=== PATIENT | female | born 1975 | race Caucasian/White ===

== ENCOUNTER → 2019-07-01 14:56 | Outpatient (BNVA) | payer MEDICARE, SELFPAY | PROVIDERS: Family Provider Family Medicine; PCP Family Medicine; Visit Provider Psychiatry & Neurology Psychiatry | DX: F41.1 Generalized anxiety disorder (principal); F10.21 Alcohol dependence, in remission; F43.9 Reaction to severe stress, unspecified | CPT/HCPCS: 99204 ==

== ENCOUNTER → 2019-08-20 08:40 | Outpatient (BNVA) | payer MEDICARE, SELFPAY | PROVIDERS: Family Provider Family Medicine; PCP Family Medicine; Visit Provider Psychiatry & Neurology Psychiatry | DX: F41.1 Generalized anxiety disorder (principal); F43.9 Reaction to severe stress, unspecified; F10.21 Alcohol dependence, in remission; F32.9 Major depressive disorder, single episode, unspecified | CPT/HCPCS: 99213 ==

== ENCOUNTER → 2019-11-12 07:53 | Outpatient (BNVA) | payer MEDICARE, SELFPAY | PROVIDERS: Family Provider Family Medicine; PCP Family Medicine; Visit Provider Psychiatry & Neurology Psychiatry | DX: F43.9 Reaction to severe stress, unspecified (principal); F10.21 Alcohol dependence, in remission; F41.1 Generalized anxiety disorder | CPT/HCPCS: 99213 ==

== ENCOUNTER → 2020-03-04 07:37 | Outpatient (BNVA) | payer MEDICARE, SELFPAY | PROVIDERS: Family Provider Family Medicine; PCP Family Medicine Adult Medicine; Visit Provider Psychiatry & Neurology Psychiatry | DX: F41.1 Generalized anxiety disorder (principal); F43.9 Reaction to severe stress, unspecified; F10.21 Alcohol dependence, in remission; F32.9 Major depressive disorder, single episode, unspecified; F33.2 Major depressive disorder, recurrent severe without psychotic features | CPT/HCPCS: 99214 ==

== ENCOUNTER 2020-04-02 10:33 | Emergency (ER) | payer MEDICARE, SELFPAY ==
[2020-04-02 10:35] VITALS: BP 156/101; PULSE 138; RESP 18; TEMP 36.7; O2SAT 100; BMI 25.8
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
[2020-04-02 11:13] VITALS: BP 166/95; PULSE 82; RESP 18; O2SAT 98
[2020-04-02] MEDS: tetanus-dipt-pertussis 0.5 mL SDV IM (11:20)
== END 2020-04-02 11:18 | disposition home or self-care (01) ==
PROVIDERS: Emergency Provider Nurse Practitioner Family; PCP Family Medicine Adult Medicine
DX: S61.411A Laceration without foreign body of right hand, initial encounter (principal); I10 Essential (primary) hypertension; F17.210 Nicotine dependence, cigarettes, uncomplicated; W25.XXXA Contact with sharp glass, initial encounter; Z23 Encounter for immunization
CPT/HCPCS: 12002; 12345; 90471; 90715; 99281; 99282

== ENCOUNTER → 2020-05-18 08:22 | Outpatient (BNVA) | payer MEDICARE, SELFPAY | PROVIDERS: PCP Family Medicine Adult Medicine; Visit Provider Psychiatry & Neurology Psychiatry | DX: F32.9 Major depressive disorder, single episode, unspecified (principal); F41.1 Generalized anxiety disorder; M54.9 Dorsalgia, unspecified; G89.29 Other chronic pain; F43.9 Reaction to severe stress, unspecified; F10.21 Alcohol dependence, in remission | CPT/HCPCS: 99213 ==

== ENCOUNTER → 2020-08-10 09:06 | Outpatient (BNVA) | payer MEDICARE, SELFPAY | PROVIDERS: PCP Family Medicine Adult Medicine; Visit Provider Psychiatry & Neurology Psychiatry | DX: F32.9 Major depressive disorder, single episode, unspecified (principal); F41.1 Generalized anxiety disorder; M54.9 Dorsalgia, unspecified; G89.29 Other chronic pain; F43.9 Reaction to severe stress, unspecified; F10.21 Alcohol dependence, in remission | CPT/HCPCS: 99213 ==

== ENCOUNTER → 2020-11-02 13:13 | Outpatient (BNVA) | payer MEDICARE, SELFPAY | PROVIDERS: PCP Family Medicine Adult Medicine; Visit Provider Psychiatry & Neurology Psychiatry | DX: F32.9 Major depressive disorder, single episode, unspecified (principal); F41.1 Generalized anxiety disorder; F17.200 Nicotine dependence, unspecified, uncomplicated; M54.9 Dorsalgia, unspecified; G89.29 Other chronic pain; F43.9 Reaction to severe stress, unspecified; F10.21 Alcohol dependence, in remission | CPT/HCPCS: 99214 ==

== ENCOUNTER → 2020-12-28 09:27 | Outpatient (BNVA) | payer MEDICARE, SELFPAY | PROVIDERS: PCP Family Medicine; Referring Provider Family Medicine; Visit Provider Anesthesiology | DX: G89.29 Other chronic pain (principal); M54.5 Low back pain; F17.210 Nicotine dependence, cigarettes, uncomplicated; Z76.89 Persons encountering health services in other specified circumstances; Z79.891 Long term (current) use of opiate analgesic | CPT/HCPCS: 99204 ==

== ENCOUNTER 2021-01-10 13:46 | Outpatient (CLI) | payer MEDICARE, SELFPAY ==
--- NOTE | 2021-01-10 13:45 | MR_ITS ---
WS: [id number] MRI LUMBAR SPINE NONCONTRAST TECHNIQUE: Sagittal T1, T2 and STIR imaging. Axial T1 and T2 imaging. CLINICAL INFORMATION: M54.9 - Dorsalgia, unspecified COMPARISON: None. FINDINGS: Mild lumbar curve. No acute compression. No high-grade central canal stenosis. L1-L2: Normal. L2-L3: Normal. L3-L4: Slight annular bulging with slight effacement of ventral thecal sac. Spinal canal and foramen are patent. Mild facet arthropathy. L4-L5: Mild annular bulging with slight effacement of the ventral thecal sac. Narrowing of the left s ubarticular recess. Mild right foraminal narrowing. Mild facet arthropathy. L5-S1: No significant disc bulging. Spinal canal and foramen are patent. Small nondisplaced fracture involving the distal S4 segment at the edge of the [id number] with a s mall amount of edema. MR/MR lumbar spine wo con* [id number] IMPRESSION: 1. Small nondisplaced fracture involving the distal S4 segment at the edge of the [id number]-[id number] with a small amount of edema. Recommend correlation for sacro coccygeal pain and recent trauma. This has an acute to subacute appearance. 2. Mild lumbar curve. No acute compression. No high-grade central canal stenos is. 3. Mild annular bulging L4-5 with slight narrowing of the subarticular recess left greater than right. 4. Mild facet arthropathy L3-L4 and L4-L5. 5. Mild right L4-5 foraminal narrowing.
== END 2021-01-10 13:47 | disposition home or self-care (01) ==
LOC: RADSHAW 13:50
PROVIDERS: PCP Family Medicine; Visit Provider Anesthesiology
DX: M47.816 Spondylosis without myelopathy or radiculopathy, lumbar region (principal); M51.26 Other intervertebral disc displacement, lumbar region; S32.10XA Unspecified fracture of sacrum, initial encounter for closed fracture; X58.XXXA Exposure to other specified factors, initial encounter
CPT/HCPCS: 72148

== ENCOUNTER → 2021-01-25 09:43 | Outpatient (BNVA) | payer MEDICARE, SELFPAY | PROVIDERS: PCP Family Medicine; Visit Provider Anesthesiology | DX: F32.9 Major depressive disorder, single episode, unspecified (principal); F41.1 Generalized anxiety disorder; F17.210 Nicotine dependence, cigarettes, uncomplicated; M54.9 Dorsalgia, unspecified; G89.29 Other chronic pain; F43.9 Reaction to severe stress, unspecified; F10.21 Alcohol dependence, in remission; M54.5 Low back pain; M54.2 Cervicalgia; Z79.891 Long term (current) use of opiate analgesic | CPT/HCPCS: 99213; 99214 ==

== ENCOUNTER → 2021-04-19 12:25 | Outpatient (BNVA) | payer MEDICARE, SELFPAY | PROVIDERS: PCP Family Medicine; Visit Provider Psychiatry & Neurology Psychiatry | DX: F32.9 Major depressive disorder, single episode, unspecified (principal); F41.1 Generalized anxiety disorder; M54.9 Dorsalgia, unspecified; G89.29 Other chronic pain | CPT/HCPCS: 99213 ==

== ENCOUNTER 2021-09-05 15:33 | Emergency (ER) | payer MEDICARE, SELFPAY ==
[2021-09-05 16:42] VITALS: BP 134/76; PULSE 85; RESP 14; TEMP 36.9; O2SAT 98; BMI 21.7
[2021-09-05 19:20] VITALS: BP 134/70; RESP 18; O2SAT 92
--- NOTE | 2021-09-05 19:25 | CTR_ITS ---
PROCEDURE INFORMATION: Exam: CT Head Without Contrast Exam date and time: 09/05/2021 8:19 PM Age: 46 years old Clinical indication: Condition or disease; Patient HX: HX of seizures. 4 seizures in last three days two today; Additional info: Seizure TECHNIQUE: Imaging protocol: Computed tomography of the head without contrast. Radiation optimization: All CT scans at this facility use at least one of these dose optimization techniques: automated exposure control; mA and/or kV adjustment per patient size (includes targeted exams where dose is matched to clinical indication); or iterative reconstruction. COMPARISON: CT head wo con* [id number] 01/17/2019 11:49 PM RADIATION DOSE METRICS: Total DLP (mGy-cm): 837.14 FINDINGS: Brain: Small bilateral cerebral convexity chronic subdural fluid collections are noted measuring up to 7 mm on the left and 9 mm on the right Mild atrophy and mild to moderate white matter chronic microvascular changes are noted. No evidence of acute infarction. Trace subarachnoid hemorrhage is present in the lateral right frontal lobe (image 29 sagittal series for reference). No midline shift. Cerebral ventricles: No ventriculomegaly. Paranasal sinuses: Visualized sinuses are unremarkable. No fluid levels. Mastoid air cells: Visualized mastoid air cells are well aerated. Bones/joints: Unremarkable. No acute fracture. Soft tissues: Unremarkable. CT/CT head wo con* [id number] IMPRESSION: 1. Trace right frontal lobe subarachnoid hemorrhage is noted. 2. Small bilateral cerebral convexity chronic subdural fluid collections are also appreciated. No midline shift.
[2021-09-05 19:43] LABS: Basophils % 0.3 %; Eosinophils # 0.3 10^3/uL (0.0-0.8); Eosinophils % 2.5 %; Hematocrit 28.6 % (37.0-47.0); Hemoglobin 9.5 g/dL (11.5-15.3); Lymphocytes # 4.6 10^3/uL (0.8-4.8); Lymphocytes % 39.6 %; Mean Corpuscular HGB Conc 33.2 g/dL (30.0-36.0); Mean Corpuscular Hemoglobin 32.1 pg (28.0-34.0); Mean Corpuscular Volume 96.6 fl (81-99); Mean Platelet Volume 10.5 fL (7.4-10.4); Monocytes # 0.7 10^3/uL (0.2-0.9); Monocytes % 6.2 %; Neutrophils # 5.91 10^3/uL (1.8-7.7); Neutrophils % 50.8 %; Nucleated Red Blood Cells % 0.2 %; Platelet Count 321 10^3/cmm (130-400); Red Blood Count 2.96 10^6/uL (4.1-5.3); Red Cell Distribution Width 16.7 % (12.1-15.1); White Blood Count 11.6 10^3/uL (4.0-10.0)
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
[2021-09-05] MEDS: levETIRAcetam 750 MG in sodium chloride 0.9% (100 ml) 100 ML 430 MG IV (19:53)
[2021-09-05] MEDS: LORazepam 2 mg/mL INJ 1 mL 1 MG IVP (19:53)
[2021-09-05 20:00] VITALS: BP 138/70; PULSE 89; RESP 18; O2SAT 98
[2021-09-05 20:06] LABS: Alanine Aminotransferase 8 U/L (0-33); Albumin Level 3.6 g/dL (3.5-5.2); Alkaline Phosphatase 164 IU/L (35-105); Blood Urea Nitrogen 13 mg/dL (6-20); Calcium 8.8 mg/dL (8.5-10.5); Carbon Dioxide 26 mmol/L (22-29); Chloride 87 mmol/L (98-107); Glomerular Filtration Rate 76.6 mL/min (90-130); Glucose 405 mg/dL (65-115); Osmolality Calculated 287 mOsm/kg (285-295); Sodium 130 mmol/L (136-145); Total Bilirubin 0.2 mg/dL (0.15-1.2); Total Protein 6.6 g/dL (6.6-8.7)
[2021-09-05 20:15] LABS: Anion Gap 19.7 (5-19); Aspartate Amino Transferase 18 U/L (0-32)
[2021-09-05 20:16] LABS: Potassium 2.7 mmol/L (3.5-5.1)
[2021-09-05 20:55] LABS: Magnesium 1.4 mg/dL (1.7-2.3)
[2021-09-05] MEDS: potassium chloride ER 20 mEq Tablet 60 MEQ PO (20:56)
[2021-09-05 21:36] VITALS: BP 138/70; PULSE 89; RESP 18; O2SAT 98
== END 2021-09-05 21:37 | disposition short-term general hospital (02) ==
PROVIDERS: Emergency Provider Emergency Medicine; PCP Family Medicine
DX: S06.6X9A Traumatic subarachnoid hemorrhage with loss of consciousness of unspecified duration, initial encounter (principal); Y09 Assault by unspecified means; R56.9 Unspecified convulsions; I10 Essential (primary) hypertension; F17.210 Nicotine dependence, cigarettes, uncomplicated
CPT/HCPCS: 70450; 80053; 83735; 85025; 96365; 96367; 96375; 99285; J1953; J2060; J3475

== ENCOUNTER 2021-09-20 23:07 | Emergency (ER) | payer MEDICARE, SELFPAY ==
[2021-09-20 23:12] VITALS: BP 146/92; PULSE 92; RESP 16; TEMP 36.6; O2SAT 97; BMI 22.8
--- NOTE | 2021-09-20 23:16 | CTR_ITS ---
PROCEDURE INFORMATION: Exam: CT Head Without Contrast Exam date and time: 09/20/2021 11:30 PM Age: 46 years old Clinical indication: Pain; Headache; Aura effect not specified; Patient HX: C/O severe migraine. Patient had CT head that showed frontal subarachnoid bleed on 09/05/2021. ; Additional info: Headache, HX sah TECHNIQUE: Imaging protocol: Computed tomography of the head without contrast. Radiation optimization: All CT scans at this facility use at least one of these dose optimization techniques: automated exposure control; mA and/or kV adjustment per patient size (includes targeted exams where dose is matched to clinical indication); or iterative reconstruction. Other technique: STROKE PROTOCOL was implemented. COMPARISON: CT head wo con* [id number] 09/05/2021 8:19 PM RADIATION DOSE METRICS: Total DLP (mGy-cm): 838.83 FINDINGS: Brain: An acute hemorrhagic component has developed in the previously seen bilateral cerebral convexity subdural hematomas. The right cerebral convexity subdural hematoma measures up to 2.4 cm and the left cerebral convexity subdural hematoma measures up to 17 mm. Leftward midline shift of approximately 8 mm has developed. The previously seen right frontal subarachnoid hemorrhage has resolved. No. CT evidence of acute infarction Cerebral ventricles: The right lateral ventricle is mildly effaced. No hydrocephalus. Paranasal sinuses: Visualized sinuses are unremarkable. No fluid levels. Mastoid air cells: Visualized mastoid air cells are well aerated. Bones/joints: Unremarkable. No acute fracture. Soft tissues: Unremarkable. CT/CT head wo con* [id number] IMPRESSION: Interval development of acute hemorrhagic component in bilateral cerebral convexity subdural hematomas. The subdural hematomas have also enlarged and leftward midline shift has developed since the prior exam. ASSESSMENT: ASPECTS ([place] Stroke Program Early CT Score) is 10.
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
[2021-09-20 23:56] VITALS: RESP 22; O2SAT 98
[2021-09-20 23:56] LABS: Basophils # 0.1 10^3/uL (0.0-0.1); Basophils % 0.6 %; Eosinophils # 0.1 10^3/uL (0.0-0.8); Hematocrit 36.4 % (37.0-47.0); Hemoglobin 11.9 g/dL (11.5-15.3); Lymphocytes # 2.4 10^3/uL (0.8-4.8); Lymphocytes % 24.4 %; Mean Corpuscular HGB Conc 32.7 g/dL (30.0-36.0); Mean Corpuscular Hemoglobin 31.8 pg (28.0-34.0); Mean Corpuscular Volume 97.3 fl (81-99); Mean Platelet Volume 9.7 fL (7.4-10.4); Monocytes # 0.6 10^3/uL (0.2-0.9); Monocytes % 5.6 %; Neutrophils % 67.6 %; Nucleated Red Blood Cells % 0 %; Platelet Count 311 10^3/cmm (130-400); Red Blood Count 3.74 10^6/uL (4.1-5.3); Red Cell Distribution Width 15.6 % (12.1-15.1); White Blood Count 9.8 10^3/uL (4.0-10.0)
[2021-09-20] MEDS: fentaNYL 50 mcg/mL INJ 2mL IVP (23:56)
[2021-09-21 00:01] LABS: INR 0.91 (0.8-1.2)
[2021-09-21 00:03] LABS: Partial Thromboplastin Time 23.7 SECONDS (23.9-36.7)
[2021-09-21 00:05] VITALS: BP 154/77; PULSE 85; RESP 17; O2SAT 97
[2021-09-21 00:12] LABS: Alanine Aminotransferase 19 U/L (0-33); Albumin Level 4.8 g/dL (3.5-5.2); Alkaline Phosphatase 139 IU/L (35-105); Anion Gap 21.5 (5-19); Aspartate Amino Transferase 14 U/L (0-32); Blood Urea Nitrogen 12 mg/dL (6-20); Calcium 8.9 mg/dL (8.5-10.5); Carbon Dioxide 21 mmol/L (22-29); Chloride 87 mmol/L (98-107); Globulin 2.5 g/dL (1.3-4.6); Glomerular Filtration Rate 106.7 mL/min (90-130); Glucose 315 mg/dL (65-115); Osmolality Calculated 272 mOsm/kg (285-295); Potassium 4.5 mmol/L (3.5-5.1); Sodium 125 mmol/L (136-145); Total Bilirubin 0.4 mg/dL (0.15-1.2); Total Protein 7.3 g/dL (6.6-8.7)
[2021-09-21 00:23] VITALS: RESP 16; O2SAT 98
[2021-09-21] MEDS: morphine 4 mg/mL SDV 1 mL IVP (00:23)
[2021-09-21 00:25] VITALS: BP 153/79; PULSE 88; RESP 19; O2SAT 97
[2021-09-21 00:36] VITALS: BP 157/84; PULSE 92; RESP 20; O2SAT 97
[2021-09-21] MEDS: nicardipine 20 MG/200 ML PREMIX 50 MG IV (00:36)
--- NOTE | 2021-09-21 01:08 | PC.NURSE ---
Patient IV Nicardipine infusion continued by [facility] Nicardipine 20mg in 200mL continued at rate of 5mg/hr by [facility] crew for patient transport.
[2021-09-21 01:10] VITALS: BP 150/79; PULSE 82; RESP 17; O2SAT 97
== END 2021-09-21 01:13 ==
PROVIDERS: Emergency Provider Emergency Medicine; PCP Family Medicine
DX: S06.5X9D Traumatic subdural hemorrhage with loss of consciousness of unspecified duration, subsequent encounter (principal); F17.210 Nicotine dependence, cigarettes, uncomplicated; Y04.2XXD Assault by strike against or bumped into by another person, subsequent encounter; F10.10 Alcohol abuse, uncomplicated; Z79.891 Long term (current) use of opiate analgesic
CPT/HCPCS: 70450; 80053; 85025; 85610; 85730; 96365; 96375; 99285; J2270; J3010

== ENCOUNTER 2021-10-05 23:23 | Emergency (ER) | payer MEDICARE, SELFPAY ==
[2021-10-05 23:36] VITALS: BP 129/76; PULSE 110; RESP 16; TEMP 37.1; O2SAT 96; BMI 22.9
--- NOTE | 2021-10-05 23:40 | CTR_ITS ---
PROCEDURE INFORMATION: Exam: CT Head Without Contrast Exam date and time: 10/05/2021 11:59 PM Age: 46 years old Clinical indication: Pain; Altered mental status/memory loss and walking, difficulty; Prior surgery; Surgery date: 3-7 days post-operative; Surgery type: Craniotomy on 09/29/2021 for RT subdural hematoma; Patient HX: Patient C/O headache with increased memory loss and seizure like activity. Patient has very unsteady gait. History of RT subdural hematoma. ; Additional info: AMS TECHNIQUE: Imaging protocol: Computed tomography of the head without contrast. Radiation optimization: All CT scans at this facility use at least one of these dose optimization techniques: automated exposure control; mA and/or kV adjustment per patient size (includes targeted exams where dose is matched to clinical indication); or iterative reconstruction. COMPARISON: CT head wo con* [id number] 09/20/2021 11:30 PM RADIATION DOSE METRICS: Total DLP (mGy-cm): 796.75 FINDINGS: Brain: Right-sided subdural hematoma measuring up to 15 mm in thickness, previously measured at 2.4 cm in thickness, with both acute and chronic components with a terrie hole in the right frontal region. Additionally a small amount of air is seen in the subdural hematoma, likely related to recent surgery. Left subdural hematoma is also seen measuring up to 2.2 cm in thickness, previously measured at 1.7 cm, with both acute and subacute components. Very minimal rightward midline shift of 2.1 mm suspected. Cerebral ventricles: Ventricles appears somewhat narrow bilaterally, likely secondary to mass effect from the bilateral subdural hematomas. Paranasal sinuses: Visualized sinuses are unremarkable. No fluid levels. Mastoid air cells: Visualized mastoid air cells are well aerated. Bones/joints: See Brain finding. Soft tissues: Unremarkable. CT/CT head wo con* [id number] IMPRESSION: 1. Right-sided subdural hematoma measuring up to 15 mm in thickness, previously measured at 2.4 cm in thickness, with both acute and chronic components with a terrie hole in the right frontal region. Additionally a small amount of air is seen in the subdural hematoma, likely related to recent surgery. 2. Left subdural hematoma is also seen measuring up to 2.2 cm in thickness, previously measured at 1.7 cm, with both acute and subacute components. 3. Very minimal rightward midline shift of 2.1 mm suspected. 4. Ventricles appears somewhat narrow bilaterally, likely secondary to mass effect from the bilateral subdural hematomas.
--- NOTE | 2021-10-05 23:41 | ECG_ITS ---
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 Measurements Intervals [place] Rate: 102 P: 14 NH: 136 QRS: -36 QRSD: 86 T: 76 QT: 347 QTc: 452 Interpretive Statements SINUS TACHYCARDIA LEFT AXIS DEVIATION [QRS AXIS < -30] PATTERN CONSISTENT WITH PULMONARY DISEASE POSSIBLE RIGHT VENTRICULAR CONDUCTION DELAY [RSR (QR) IN V1/V2] LEFT VENTRICULAR HYPERTROPHY AND ST-T CHANGE [VOLTAGE CRITERIA PLUS ST/T ABNORMALITY] No previous ECG available for comparison Electronically Signed On 10-06-2021 22:33:54 CDT by Eyad Palmer M.D. [id number]
[2021-10-06 00:18] VITALS: RESP 18
[2021-10-06] MEDS: ondansetron 2 mg/ML SDV 2 mL 4 MG IVP (00:18)
[2021-10-06] MEDS: morphine 4 mg/mL SDV 1 mL IVP (00:18)
--- NOTE | 2021-10-06 00:24 | ED_ITS ---
HPI - Altered Mental Status General: Chief Complaint: Altered Mental Status Stated Complaint: been having seizures Time Seen by Provider: 10/05/21 23:38 Source: patient and family Mode of arrival: ambulatory Limitations: no limitations History of Present Illness: 46-year-old female has a history of a subdural hematoma the months ago but had acute expansion had have surgery last week she had left the hospital yesterday she states she does not really remember anything over the last few weeks does not ever remember being admitted or surgery. Patient is here with a friend that states she has had some slight confusion today headaches patient states she does have a headache currently she rates a 4-10 she is able answer all my questions appropriately here she has no confusion here. No fevers. Associated symptoms: Deny depression Review of Systems Const: Denies: fever(s), chills, body aches or change in appetite Eyes: Denies: blurry vision or eye discomfort ENMT: Denies: throat pain or dental pain Card: Denies: chest pain Resp: Denies: dyspnea GI: Denies: abdominal pain, nausea, vomiting or diarrhea : Denies: dysuria Musc: Denies: neck pain or back pain Skin/Breast: Denies: rash Neuro: Reports: lack of coordination and confusion Psych: Denies: depression Bhavesh/Lymph: Denies: easy bruising All/Imm: Denies: urticaria PFSH ED PFSH: Medical History Chronic back pain greater than 3 months duration Chronic low back pain Chronic neck and back pain Depression Encounter for long-term opiate analgesic use Hypertension Psychiatric care Family History Other Dementia Heart disease Hypertension Myocardial infarction Stroke Social History Smoking and tobacco status: current every day smoker cigarettes Packs smoked per day: 0.5 Years cigarettes smoked: 32 Quit status (tobacco): considering quitting Smoking risk assessment/counseling performed?: Yes Tobacco counseling given: counseling >3 minutes Alcohol intake: former Adopted: No Caregiver/support person: No Lives independently: Yes Household members: none Housing: House Marital status: Legally Number of children: 2 Number of grandchildren: 0 Highest education level completed: Some College, No Degree service: No Current occupational status: disabled Pets and animals: Yes History of recent travel: No Sexually active: No Current gender identity: Female Agree to transfusion: Yes (05/28/2019) Female Reproductive History: Date of last menstrual period: 04/27/19 Physical Exam Const: COMMON NORMALS: no acute distress, average body habitus, patient oriented x3 and healthy appearing HENMT: COMMON NORMALS: normocephalic and atraumatic HEAD & SCALP: normocephalic and atraumatic Eye: COMMON NORMALS: Equal, round and reactive pupils present and EOMs intact bilaterally PUPIL: Yes Equal, round and reactive pupils present Neck/C-Spine: COMMON NORMALS: full ROM and supple Chest: COMMONS NORMALS: normal inspection of the chest Resp: COMMON NORMALS: normal respiratory effort, No use of accessory muscles and clear to auscultation bilaterally EFFORT & INSPECTION: Yes able to speak in complete sentences AUSCULTATION: clear to auscultation bilaterally Cardio: COMMON NORMALS: regular rate and regular rhythm RATE: regular rate RHYTHM: regular rhythm GI: COMMON NORMALS: Normal to inspection, nondistended, normoactive bowel sounds present, Soft to palpation and non-tender PALPATION: Yes Soft to palpation Extremity: COMMON NORMALS: normal to inspection Neuro: COMMON NORMALS: patient oriented x3 Psych: COMMON NORMALS: mental status grossly normal and cooperative Skin: COMMON NORMALS: no rashes or lesions noted GENERAL SKIN EXAM: no rashes or lesions noted Course Vital Signs: Vital signs: Vital Signs Temperature 98.7 F 10/05/21 23:36 Pulse Rate 110 H 10/05/21 23:36 Respiratory Rate 18 10/06/21 00:18 Blood Pressure 129/76 10/05/21 23:36 Pulse Oximetry 96 10/05/21 23:36 MDM - Altered Mental Status Medical Decision Making Patient presents here with slight headache confusion she is not confused here she is at her baseline able answer my questions appropriately I went over her CT scan with neurosurgeon at [facility] this shows no change from her CT there at discharge she is to follow-up with them in 2 to 3 days and return if worsening she understands and agrees to plan. Lab Data : 10/06/21 00:00 10/06/21 01:[address] 10/05/21 23:40 IMPRESSION: 1. Right-sided subdural hematoma measuring up to 15 mm in thickness, previously measured at 2.4 cm in thickness, with both acute and chronic components with a terrie hole in the right frontal region. Additionally a small amount of air is seen in the subdural hematoma, likely related to recent surgery. 2. Left subdural hematoma is also seen measuring up to 2.2 cm in thickness, previously measured at 1.7 cm, with both acute and subacute components. 3. Very minimal rightward midline shift of 2.1 mm suspected. 4. Ventricles appears somewhat narrow bilaterally, likely secondary to mass effect from the bilateral subdural hematomas. Laboratory Results WBC 14.1 10^3/uL (4.0-10.0) H 10/06/21 00:00 RBC 3.05 10^6/uL (4.1-5.3) L 10/06/21 00:00 Hgb 10.0 g/dL (11.5-15.3) L 10/06/21 00:00 Hct 30.3 % (37.0-47.0) L 10/06/21 00:00 MCV 99.3 fl (81-99) H 10/06/21 00:00 MCH 32.8 pg (28.0-34.0) 10/06/21 00:00 MCHC 33.0 g/dL (30.0-36.0) 10/06/21 00:00 RDW 14.5 % (12.1-15.1) 10/06/21 00:00 Plt Count 389 10^3/cmm (130-400) 10/06/21 00:00 MPV 9.8 fL (7.4-10.4) 10/06/21 00:00 Neut % (Auto) 62.6 % 10/06/21 00:00 Lymph % (Auto) 28.9 % 10/06/21 00:00 Kimball % (Auto) 5.7 % 10/06/21 00:00 Eos % (Auto) 1.9 % 10/06/21 00:00 Baso % (Auto) 0.5 % 10/06/21 00:00 Neut # (Auto) 8.83 10^3/uL (1.8-7.7) H 10/06/21 00:00 Lymph # (Auto) 4.1 10^3/uL (0.8-4.8) 10/06/21 00:00 Kimball # (Auto) 0.8 10^3/uL (0.2-0.9) 10/06/21 00:00 Eos # (Auto) 0.3 10^3/uL (0.0-0.8) 10/06/21 00:00 Baso # (Auto) 0.1 10^3/uL (0.0-0.1) 10/06/21 00:00 Nucleated RBC % (auto) 0 % 10/06/21 00:00 Nucleated RBCs # 0.0 /100WBC 10/06/21 00:00 Sodium 139 mmol/L (136-145) 10/06/21 01:00 Potassium 4.0 mmol/L (3.5-5.1) 10/06/21 01:00 Chloride 101 mmol/L (98-107) 10/06/21 01:00 Carbon Dioxide 23 mmol/L (22-29) 10/06/21 01:00 Anion Gap 19.0 (5-19) 10/06/21 01:00 BUN 16 mg/dL (6-20) 10/06/21 01:00 Creatinine 0.8 mg/dL (0.5-0.9) 10/06/21 01:00 GFR Calculation 76.6 mL/min (90-130) L 10/06/21 01:00 Glucose 206 mg/dL (65-115) H 10/06/21 01:00 Calculated Osmolality 295 mOsm/kg (285-295) 10/06/21 01:00 Calcium 9.4 mg/dL (8.5-10.5) 10/06/21 01:00 Total Bilirubin 0.2 mg/dL (0.15-1.2) 10/06/21 01:00 AST 12 U/L (0-32) 10/06/21 01:00 ALT 17 U/L (0-33) 10/06/21 01:00 Alkaline Phosphatase 130 IU/L (35-105) H 10/06/21 01:00 Total Protein 7.2 g/dL (6.6-8.7) 10/06/21 01:00 Albumin 4.2 g/dL (3.5-5.2) 10/06/21 01:00 Globulin 3.0 g/dL (1.3-4.6) 10/06/21 01:00 Ethyl Alcohol < 10 mg/dL (0-10) 10/06/21 01:00 EKG Data EKG 1: I personally reviewed and interpreted this EKG as follows: EKG interpretation date: 10/06/21 EKG interpretation time: 00:16 Interpretation: sinus tach hr [address] or t wave abnormalities qrs 86 qtc 405 Discharge Plan Discharge Patient Disposition: Home Clinical Impression: Headache Qualifiers: Headache type: unspecified Condition: Stable Prescriptions: No Action gabapentin 600 mg tablet 600 mg PO TID 0RF tizanidine 4 mg tablet 4 mg PO TID PRN0RF tramadol 50 mg tablet 50 mg PO QID PRN (Reason: For moderate to severe pain) 30 Days Qty: 120 2RF Rx Instructions: fill on or after 01/28/21, 02/27/21 and 03/29/21 montelukast [Singulair] 10 mg tablet 10 mg PO DAILY 0RF amitriptyline 100 mg tablet 100 mg PO .HS Qty: 30 2RF trazodone 100 mg tablet 300 mg PO .HS Qty: 90 2RF nicotine (polacrilex) [Nicorette] 4 mg gum 4 mg buccal Q1H Qty: 110 2RF metoprolol tartrate 25 mg tablet 25 mg PO DAILY 30 Days Qty: 30 0RF Rx Instructions: NEEDS A NEW PROVIDER FOR REFILLS amlodipine 5 mg tablet 5 mg PO DAILY 30 Days Qty: 30 0RF Rx Instructions: pt MUST make an appt with the Provider for further refills. Discharge Orders: Discharge ED (Routine); Ordered 10/06/21 Ordered By: Sindhu Cueva Referrals: Brice Venegas MD [Primary Care Provider] - 1-3 days Discharge Diet: Advance as tolerated Discharge Activity: Resume usual activity Patient Instructions: Acute Headache (ED) Coding Level of Care Code ED Manager Process Improvement for Chg Fwd Exam Comprehensive
[2021-10-06 00:32] LABS: Basophils # 0.1 10^3/uL (0.0-0.1); Basophils % 0.5 %; Eosinophils # 0.3 10^3/uL (0.0-0.8); Eosinophils % 1.9 %; Hematocrit 30.3 % (37.0-47.0); Lymphocytes # 4.1 10^3/uL (0.8-4.8); Lymphocytes % 28.9 %; Mean Corpuscular Hemoglobin 32.8 pg (28.0-34.0); Mean Corpuscular Volume 99.3 fl (81-99); Mean Platelet Volume 9.8 fL (7.4-10.4); Monocytes # 0.8 10^3/uL (0.2-0.9); Monocytes % 5.7 %; Neutrophils # 8.83 10^3/uL (1.8-7.7); Neutrophils % 62.6 %; Nucleated Red Blood Cells % 0 %; Platelet Count 389 10^3/cmm (130-400); Red Blood Count 3.05 10^6/uL (4.1-5.3); Red Cell Distribution Width 14.5 % (12.1-15.1); White Blood Count 14.1 10^3/uL (4.0-10.0)
[2021-10-06 00:52] LABS: Slide Review Slide Review Perform
[2021-10-06 01:25] LABS: Alanine Aminotransferase 17 U/L (0-33); Albumin Level 4.2 g/dL (3.5-5.2); Alcohol Level < 10 mg/dL (0-10); Alkaline Phosphatase 130 IU/L (35-105); Aspartate Amino Transferase 12 U/L (0-32); Blood Urea Nitrogen 16 mg/dL (6-20); Calcium 9.4 mg/dL (8.5-10.5); Carbon Dioxide 23 mmol/L (22-29); Chloride 101 mmol/L (98-107); Glomerular Filtration Rate 76.6 mL/min (90-130); Glucose 206 mg/dL (65-115); Osmolality Calculated 295 mOsm/kg (285-295); Sodium 139 mmol/L (136-145); Total Bilirubin 0.2 mg/dL (0.15-1.2); Total Protein 7.2 g/dL (6.6-8.7)
[2021-10-06 01:46] VITALS: BP 129/79; PULSE 110; RESP 18; O2SAT 96
== END 2021-10-06 01:40 | disposition home or self-care (01) ==
PROVIDERS: Emergency Provider Emergency Medicine; PCP Family Medicine
DX: R51.9 Headache, unspecified (principal); Z98.890 Other specified postprocedural states
CPT/HCPCS: 70450; 80053; 80307; 85025; 93005; 96374; 96375; 99284; J2270; J2405

== ENCOUNTER 2021-10-13 15:41 | Emergency (ER) | payer MEDICARE, SELFPAY ==
[2021-10-13 15:55] VITALS: BP 88/50; PULSE 77; RESP 14; TEMP 37.2; O2SAT 95; BMI 23.2
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
[2021-10-13 17:44] VITALS: RESP 19
[2021-10-13] MEDS: morphine 4 mg/mL SDV 1 mL IVP ×2 (17:44→21:59)
[2021-10-13] MEDS: ondansetron 2 mg/ML SDV 2 mL 4 MG IVP (17:44)
[2021-10-13 18:56] LABS: Basophils # 0.1 10^3/uL (0.0-0.1); Basophils % 0.5 %; Eosinophils # 0.4 10^3/uL (0.0-0.8); Eosinophils % 3.5 %; Hematocrit 30.5 % (37.0-47.0); Hemoglobin 9.9 g/dL (11.5-15.3); Lymphocytes # 4.2 10^3/uL (0.8-4.8); Lymphocytes % 35.4 %; Mean Corpuscular HGB Conc 32.5 g/dL (30.0-36.0); Mean Corpuscular Hemoglobin 32.4 pg (28.0-34.0); Mean Corpuscular Volume 99.7 fl (81-99); Mean Platelet Volume 9.6 fL (7.4-10.4); Monocytes # 0.8 10^3/uL (0.2-0.9); Monocytes % 7.1 %; Neutrophils # 6.21 10^3/uL (1.8-7.7); Neutrophils % 52.9 %; Nucleated Red Blood Cells % 0 %; Platelet Count 367 10^3/cmm (130-400); Red Blood Count 3.06 10^6/uL (4.1-5.3); Red Cell Distribution Width 14.6 % (12.1-15.1); White Blood Count 11.7 10^3/uL (4.0-10.0)
[2021-10-13 19:18] LABS: Alanine Aminotransferase 8 U/L (0-33); Albumin Level 3.9 g/dL (3.5-5.2); Alkaline Phosphatase 100 IU/L (35-105); Anion Gap 13.6 (5-19); Aspartate Amino Transferase 11 U/L (0-32); Blood Urea Nitrogen 14 mg/dL (6-20); Calcium 8.7 mg/dL (8.5-10.5); Carbon Dioxide 26 mmol/L (22-29); Chloride 103 mmol/L (98-107); Globulin 2.5 g/dL (1.3-4.6); Glomerular Filtration Rate 76.6 mL/min (90-130); Glucose 135 mg/dL (65-115); Osmolality Calculated 289 mOsm/kg (285-295); Potassium 4.6 mmol/L (3.5-5.1); Sodium 138 mmol/L (136-145); Total Bilirubin 0.2 mg/dL (0.15-1.2); Total Protein 6.4 g/dL (6.6-8.7)
[2021-10-13 19:41] LABS: Slide Review Slide Review Perform
[2021-10-13 20:55] VITALS: BP 98/56; PULSE 68; RESP 15; O2SAT 97
[2021-10-13 21:59] VITALS: RESP 18
== END 2021-10-13 22:01 ==
PROVIDERS: Emergency Provider Emergency Medicine; PCP Family Medicine
DX: I61.9 Nontraumatic intracerebral hemorrhage, unspecified (principal)
CPT/HCPCS: 36415; 70450; 80053; 85025; 96374; 96375; 96376; 99285; J2270; J2405